=== PATIENT | female | born 1960 | race Caucasian/White ===

== ENCOUNTER 2022-01-16 11:36 | Emergency (ER) | payer OTHER, SELFPAY ==
--- NOTE | 2022-01-16 11:38 | ED.SKABFB ---
HPI - Skin/Abscess/Foreign Bdy General Chief complaint: Skin/Abscess/Foreign Body Stated complaint: bite on back of right knee Time Seen by Provider: 01/16/22 11:39 Source: patient and RN notes reviewed History of Present Illness HPI narrative: Patient is a 61-year-old female who presents the urgent care with complaints of a possible insect bite behind the right knee. Patient states she noticed it on Sunday and the redness seems to have gotten much better. Patient states that she has mild tenderness to the area and was concerned for infection. Patient denies of any fevers, nausea, vomiting. Patient has used alcohol on the area as well as Neosporin. Patient states it does not bother her with ambulation. No other acute complaints. No acute distress noted. Patient aware of the plan of care. Some parts of this dictation were generated by voice recognition software and may contain typographical and/or grammatical inaccuracies. Related Data Home Medications Medication Instructions Recorded Confirmed atorvastatin 20 mg tablet 20 tablet PO DAILY 01/16/22 01/16/22 diclofenac sodium 75 mg 75 tablet PO DAILY 01/16/22 01/16/22 tablet,delayed release levothyroxine 137 mcg tablet 1 tablet PO DAILY 01/16/22 01/16/22 (Synthroid) losartan 50 mg-hydrochlorothiazide 1 tablet PO DAILY 01/16/22 01/16/22 12.5 mg tablet pantoprazole 40 mg tablet,delayed 1 tablet PO DAILY 01/16/22 01/16/22 release semaglutide 0.25 mg or 0.5 mg (2 1 ea subcut WEEKLY 01/16/22 01/16/22 mg/1.5 mL) subcutaneous pen injector (Ozempic) Allergies Allergy/AdvReac Type Severity Reaction Status Date / Time lisinopril AdvReac Cough Verified 01/16/22 12:06 morphine AdvReac Vomiting Verified 01/16/22 11:55 Review of Systems Review of Systems: CONSTITUTIONAL: Denies fever, chills, or sweats. EYES: Denies visual changes, redness, or discharge. ENT: Denies rhinorrhea, congestion, sore throat, or otalgia. CARDIOVASCULAR: Denies chest pain, palpitations, or edema. RESPIRATORY: Denies cough or dyspnea. GASTROINTESTINAL: Denies abdominal pain, nausea, vomiting, or diarrhea. GENITOURINARY: Denies dysuria or hematuria. SKIN: Reports of an insect bite behind the right knee MUSCULOSKELETAL: Denies back pain, joint pain, or myalgia. NEUROLOGIC: Denies headache, numbness, or weakness. All other systems reviewed are negative, except as documented in HPI. PMFSH Comments At the time of my signature, I reviewed and agree with the nursing past medical, surgical, social, and family history. There is no relevant family history pertinent to the patient complaint. Exam Narrative: GENERAL: This is a well-nourished, well-developed patient, in no apparent distress. HEAD: normocephalic, atraumatic. EYES: PERRL. Sclera clear/white. Vision is grossly intact. EARS: External ears normal NOSE: External nose normal with no obvious nasal discharge, nares without redness, no rhinorrhea. THROAT: Mucous membranes moist NECK: Neck supple CARDIOVASCULAR: Regular rate and rhythm without murmurs, gallops, or rubs. RESPIRATORY: Clear to auscultation. Breath sounds equal bilaterally. No wheezes, rales, or rhonchi. GASTROINTESTINAL: Abdomen soft, non-tender, nondistended. Bowel sounds are active. No hepato-splenomegaly, or palpable masses. No guarding. SKIN: 2 x 2 centimeter firmness the posterior right knee with mild surrounding erythema without tenderness. 1 cm ecchymotic center without drainage NEURO: awake, alert, and oriented to person, place and time. There were no obvious focal neurologic abnormalities. EXTREMITIES: No clubbing, cyanosis, or edema. No joint tenderness, effusion, or edema noted. No calf tenderness. Negative Homans sign bilaterally. BACK: Nontender without deformity or crepitance. No flank tenderness. Course Course Level of Care: Express Care Visit Vital Signs Vital signs: Vital Signs Temperature 97.8 F 01/16/22 11:47 Pulse Rate 76 01/16/22 11:47 Respi
[2022-01-16 11:47] VITALS: BP 140/81; PULSE 76; RESP 15; TEMP 36.6; O2SAT 100
== END 2022-01-16 12:15 | disposition home or self-care (01) ==
PROVIDERS: Emergency Provider Nurse Practitioner Family; PCP Internal Medicine Geriatric Medicine
DX: S80.261A Insect bite (nonvenomous), right knee, initial encounter (principal); W57.XXXA Bitten or stung by nonvenomous insect and other nonvenomous arthropods, initial encounter; E78.00 Pure hypercholesterolemia, unspecified; I10 Essential (primary) hypertension; E11.9 Type 2 diabetes mellitus without complications; E89.0 Postprocedural hypothyroidism; Z85.850 Personal history of malignant neoplasm of thyroid
CPT/HCPCS: 99213; G0463